=== PATIENT | female | born 1995 | race Caucasian/White ===

== ENCOUNTER 2021-01-06 23:58 | Emergency (ER) | payer OTHER ==
[~2021-01-06 23:58] MED LIST: FLEXERIL5 MG PO; NAPROXEN500 MG PO; NORCO 5-325 TA1 EACH PO
== END 2021-01-07 02:05 | disposition home or self-care (01) ==
LOC: FER 23:58
DX: L50.0 Allergic urticaria (principal); F17.210 Nicotine dependence, cigarettes, uncomplicated
CPT/HCPCS: 99283; J1040

== ENCOUNTER 2021-04-27 20:57 | Emergency (ER) | payer OTHER ==
[2021-04-27 22:15] LABS: BASOPHIL 0.5 % (0-2); EOSINOPHIL 0.7 % (0-5); HCT 39.6 % (37.0-47.0); HGB 13.3 g/dl (12.5-16.0); LYMPHOCYTE 21.5 % (15-48); MCH 30.2 pg (25.0-31.0); MCHC 33.6 g/dL (32.0-36.0); MONOCYTE 9.4 % (0-12); MPV 10.1 fL (6.0-9.5); NEUTROPHIL 67.5 % (41-80); NRBC 0; PLT 215 K/uL (150-400); RDW 13.6 % (11.5-14.0); WBC 7.4 K/uL (4.0-10.5)
[2021-04-27 22:33] LABS: BILIRUBIN NEGATIVE (NEGATIVE); BLOOD NEGATIVE Ery/uL (NEGATIVE); CLARITY CLEAR (CLEAR); COLOR YELLOW (YELLOW); GLUCOSE (U) NORMAL (NORMAL); LEUKOCYTES NEGATIVE Leu/uL (NEGATIVE); NITRITE NEGATIVE (NEGATIVE); PROTEIN NEGATIVE (NEGATIVE); SPECIFIC GRAVITY >=1.030 (1.001-1.030); UROBILINOGEN 0.2 mg/dL (0.2-1.0)
[2021-04-27 22:50] LABS: ALBUMIN 3.5 g/dL (3.4-5.0); BILIRUBIN - TOTAL 0.2 mg/dL (0.2-1.0); CREATININE 0.72 mg/dL (0.51-0.95); GLOBULIN (CALCULATION) 3.3 g/dL; POTASSIUM 4.1 mmol/L (3.5-5.1); TOTAL PROTEIN 6.8 g/dL (6.4-8.2)
== END 2021-04-28 01:57 | disposition home or self-care (01) ==
LOC: FER 20:57
PROVIDERS: Emergency Medicine Emergency Medical Services
DX: O20.0 Threatened abortion (principal); O99.331 Smoking (tobacco) complicating pregnancy, first trimester; F17.210 Nicotine dependence, cigarettes, uncomplicated; Z88.0 Allergy status to penicillin; Z87.42 Personal history of other diseases of the female genital tract; Z3A.08 8 weeks gestation of pregnancy
CPT/HCPCS: 36415; 76801; 80053; 81003; 84702; 85025

== ENCOUNTER 2021-05-06 14:55 | Emergency (ER) | payer OTHER ==
[2021-05-06 15:58] LABS: BILIRUBIN NEGATIVE (NEGATIVE); BLOOD NEGATIVE Ery/uL (NEGATIVE); CLARITY HAZY (CLEAR); COLOR YELLOW (YELLOW); GLUCOSE (U) NORMAL (NORMAL); LEUKOCYTES TRACE Leu/uL (NEGATIVE); NITRITE NEGATIVE (NEGATIVE); PROTEIN TRACE (LOW) mg/dL (NEGATIVE); UROBILINOGEN 0.2 mg/dL (0.2-1.0)
[2021-05-06 16:14] LABS: BACTERIA 2+; URINARY RBC RARE
[2021-05-06 19:25] LABS: BASOPHIL 0.3 % (0-2); EOSINOPHIL 0.7 % (0-5); HCT 41.7 % (37.0-47.0); HGB 14.3 g/dl (12.5-16.0); LYMPHOCYTE 26.3 % (15-48); MCH 29.8 pg (25.0-31.0); MCHC 34.3 g/dL (32.0-36.0); MCV 86.9 fL (78.0-100.0); MONOCYTE 9.2 % (0-12); MPV 9.7 fL (6.0-9.5); NEUTROPHIL 63.2 % (41-80); NRBC 0; PLT 247 K/uL (150-400); RDW 13.2 % (11.5-14.0); WBC 5.8 K/uL (4.0-10.5)
[2021-05-06 19:41] LABS: ALBUMIN 3.7 g/dL (3.4-5.0); BILIRUBIN - TOTAL 0.4 mg/dL (0.2-1.0); BUN/CREAT RATIO (CALC) 15.6 RATIO; CREATININE 0.64 mg/dL (0.51-0.95); GLOBULIN (CALCULATION) 3.7 g/dL; POTASSIUM 3.8 mmol/L (3.5-5.1); TOTAL PROTEIN 7.4 g/dL (6.4-8.2)
[2021-05-06] MEDS ORDERED: DOXYLAMINE-PYR1 EACH PO (22:10)
[2021-05-06] MEDS ORDERED: PROMETHEGA12.5 MG/SU PR (22:10)
[2021-05-06] MEDS ORDERED: MACROBID100 MG PO (22:10)
== END 2021-05-06 22:48 | disposition home or self-care (01) ==
LOC: FER 14:55
PROVIDERS: Emergency Medicine; Nurse Practitioner Family
DX: O23.41 Unspecified infection of urinary tract in pregnancy, first trimester (principal); O21.0 Mild hyperemesis gravidarum; O99.281 Endocrine, nutritional and metabolic diseases complicating pregnancy, first trimester; E86.0 Dehydration; F17.210 Nicotine dependence, cigarettes, uncomplicated; O99.331 Smoking (tobacco) complicating pregnancy, first trimester; Z3A.01 Less than 8 weeks gestation of pregnancy; Z88.0 Allergy status to penicillin; Z87.59 Personal history of other complications of pregnancy, childbirth and the puerperium
CPT/HCPCS: 36415; 80053; 81001; 84702; 85025; 87088; J0780; J1200; J2405; J7030

== ENCOUNTER 2021-05-18 14:08 | Emergency (ER) | payer OTHER ==
[~2021-05-18 14:08] MED LIST changes: +DOXYLAMINE-PYR1 EACH PO; +MACROBID100 MG PO; +PROMETHEGA12.5 MG/SU PR
[2021-05-18 14:50] LABS: BASOPHIL 0.6 % (0-2); EOSINOPHIL 0.5 % (0-5); HCT 38.1 % (37.0-47.0); LYMPHOCYTE 22.3 % (15-48); MCH 29.7 pg (25.0-31.0); MCHC 34.1 g/dL (32.0-36.0); MCV 87.2 fL (78.0-100.0); MONOCYTE 8.1 % (0-12); NEUTROPHIL 68.2 % (41-80); NRBC 0; PLT 238 K/uL (150-400); RBC 4.37 M/uL (4.20-5.40); RDW 12.8 % (11.5-14.0); WBC 6.2 K/uL (4.0-10.5)
[2021-05-18 14:56] LABS: BILIRUBIN 1+ mg/dL (NEGATIVE); BLOOD 3+ Ery/uL (NEGATIVE); CLARITY CLOUDY (CLEAR); COLOR YELLOW (YELLOW); GLUCOSE (U) NORMAL (NORMAL); LEUKOCYTES TRACE Leu/uL (NEGATIVE); NITRITE NEGATIVE (NEGATIVE); PROTEIN TRACE (LOW) mg/dL (NEGATIVE); SPECIFIC GRAVITY 1.025 (1.001-1.030)
[2021-05-18 15:03] LABS: BACTERIA 1+; SQUAMOUS EPITHELIAL CELLS >50
[2021-05-18 15:07] LABS: BUN/CREAT RATIO (CALC) 18.5 RATIO; CREATININE 0.54 mg/dL (0.51-0.95); POTASSIUM 3.6 mmol/L (3.5-5.1)
== END 2021-05-18 16:52 | disposition home or self-care (01) ==
LOC: FER 14:08
PROVIDERS: Nurse Practitioner Family
DX: O99.281 Endocrine, nutritional and metabolic diseases complicating pregnancy, first trimester (principal); E86.0 Dehydration; O21.9 Vomiting of pregnancy, unspecified; Z3A.08 8 weeks gestation of pregnancy
CPT/HCPCS: 36415; 80048; 81001; 84702; 85025; J7120

== ENCOUNTER 2021-05-22 11:49 | Day surgery (SDCO) | payer OTHER ==
[~2021-05-22] VITALS: Ht 157.5 cm; Wt 92.1 kg
[2021-05-22 13:53] LABS: BASOPHIL 0.2 % (0-2); EOSINOPHIL 0.1 % (0-5); HCT 40.7 % (37.0-47.0); HGB 14.1 g/dl (12.5-16.0); LYMPHOCYTE 15.3 % (15-48); MCH 29.8 pg (25.0-31.0); MCHC 34.6 g/dL (32.0-36.0); MONOCYTE 5.1 % (0-12); MPV 10.6 fL (6.0-9.5); NEUTROPHIL 78.9 % (41-80); NRBC 0; PLT 277 K/uL (150-400); RBC 4.73 M/uL (4.20-5.40); RDW 13.1 % (11.5-14.0); WBC 8.6 K/uL (4.0-10.5)
[2021-05-22 13:56] LABS: BILIRUBIN 1+ mg/dL (NEGATIVE); BLOOD 1+ Ery/uL (NEGATIVE); COLOR YELLOW (YELLOW); GLUCOSE (U) NORMAL (NORMAL); LEUKOCYTES 1+ Leu/uL (NEGATIVE); NITRITE NEGATIVE (NEGATIVE); PROTEIN 1+ mg/dL (NEGATIVE); SPECIFIC GRAVITY 1.025 (1.001-1.030); UROBILINOGEN 0.2 mg/dL (0.2-1.0)
[2021-05-22 13:59] LABS: CLARITY HAZY (CLEAR)
[2021-05-22 14:04] LABS: BUN/CREAT RATIO (CALC) 17.9 RATIO; CREATININE 0.56 mg/dL (0.51-0.95); POTASSIUM 3.5 mmol/L (3.5-5.1)
[2021-05-22 14:04] LABS: BACTERIA 2+; SQUAMOUS EPITHELIAL CELLS 20-50
[2021-05-22 14:05] LABS: MUCOUS TRACE; URINARY RBC RARE
[2021-05-22 19:13] LABS: CORONAVIRUS 2019 SARS-COV-2 NEGATIVE (NEGATIVE); INFLUENZA A NAA NEGATIVE (NEGATIVE)
[2021-05-22] MEDS ORDERED: REGLAN5 MG PO (21:04)
--- NOTE | 2021-05-23 04:35 | NUR ---
CORRECTION OF DOCUMENTATION IVF'S DOCUMENTED ON 05/23/2021 AT 0000, 0200 , & 0400 ARE LRD5W AT 125ML/HR.
--- NOTE | 2021-05-23 04:36 | NUR ---
lATE ENTRY: IVF'S DOCUMENTED AT 1999 & 2200 ON 05/22/21 ARE LRD5W AT 125 ML/HR.
[2021-05-23] MEDS ORDERED: VITAMIN B-625 MG PO (06:33)
[2021-05-23] MEDS ORDERED: SLEEP AID25 M1 PO (06:33)
== END 2021-05-23 11:51 | disposition home or self-care (01) ==
LOC: FER 11:49 → FMS 18:25
PROVIDERS: Nurse Practitioner Family; ADMIT Obstetrics & Gynecology
DX: O21.9 Vomiting of pregnancy, unspecified (principal); O30.041 Twin pregnancy, dichorionic/diamniotic, first trimester; Z3A.08 8 weeks gestation of pregnancy; Z88.0 Allergy status to penicillin; F17.200 Nicotine dependence, unspecified, uncomplicated; O99.331 Smoking (tobacco) complicating pregnancy, first trimester; Z20.822 Contact with and (suspected) exposure to COVID-19
CPT/HCPCS: 36415; 80048; 81001; 84702; 85025; 87088; G0378; J2405; J2550; J2765; J7030; J7120; J7121; U0002

== ENCOUNTER 2021-06-29 10:58 | Emergency (ER) | payer OTHER ==
[~2021-06-29 10:58] MED LIST changes: +REGLAN5 MG PO; +SLEEP AID25 M1 PO; +VITAMIN B-625 MG PO
[2021-06-29 12:41] LABS: INFLUENZA A NAA NEGATIVE (NEGATIVE)
[2021-06-29 12:46] LABS: CORONAVIRUS 2019 SARS-COV-2 POSITIVE (NEGATIVE)
[2021-06-29 13:49] LABS: BASOPHIL 0.2 % (0-2); EOSINOPHIL 0.2 % (0-5); HCT 37.3 % (37.0-47.0); HGB 12.5 g/dl (12.5-16.0); LYMPHOCYTE 22.2 % (15-48); MCH 29.8 pg (25.0-31.0); MCHC 33.5 g/dL (32.0-36.0); MONOCYTE 13.9 % (0-12); MPV 9.9 fL (6.0-9.5); NEUTROPHIL 62.8 % (41-80); NRBC 0; PLT 189 K/uL (150-400); RBC 4.19 M/uL (4.20-5.40); RDW 13.8 % (11.5-14.0); WBC 4.2 K/uL (4.0-10.5)
[2021-06-29 14:13] LABS: ALBUMIN 2.9 g/dL (3.4-5.0); BILIRUBIN - TOTAL 0.1 mg/dL (0.2-1.0); BUN/CREAT RATIO (CALC) 15.1 RATIO; CREATININE 0.53 mg/dL (0.51-0.95); GLOBULIN (CALCULATION) 3.9 g/dL; POTASSIUM 3.6 mmol/L (3.5-5.1); TOTAL PROTEIN 6.8 g/dL (6.4-8.2)
[2021-06-29 15:29] LABS: BILIRUBIN 1+ mg/dL (NEGATIVE); BLOOD NEGATIVE Ery/uL (NEGATIVE); CLARITY CLEAR (CLEAR); COLOR YELLOW (YELLOW); GLUCOSE (U) NORMAL (NORMAL); LEUKOCYTES TRACE Leu/uL (NEGATIVE); NITRITE NEGATIVE (NEGATIVE); PROTEIN TRACE (LOW) mg/dL (NEGATIVE); SPECIFIC GRAVITY >=1.030 (1.001-1.030); UROBILINOGEN 0.2 mg/dL (0.2-1.0)
[2021-06-29 15:34] LABS: BACTERIA 1+; SQUAMOUS EPITHELIAL CELLS >50
[2021-06-29] MEDS ORDERED: KEFLEX250 MG PO (16:39)
== END 2021-06-29 18:02 | disposition home or self-care (01) ==
LOC: FER 10:58
PROVIDERS: Internal Medicine; Physician Assistant
DX: O02.1 Missed abortion (principal); O23.42 Unspecified infection of urinary tract in pregnancy, second trimester; O98.511 Other viral diseases complicating pregnancy, first trimester; U07.1 COVID-19; Z3A.14 14 weeks gestation of pregnancy; Z88.1 Allergy status to other antibiotic agents; Z88.0 Allergy status to penicillin; Z79.899 Other long term (current) drug therapy; Z87.891 Personal history of nicotine dependence
CPT/HCPCS: 36415; 76801; 76802; 80053; 81001; 85025; J7030; Q0169; U0002

== ENCOUNTER 2021-07-14 19:31 | Emergency (ER) | payer OTHER ==
[~2021-07-14 19:31] MED LIST changes: +KEFLEX250 MG PO
[2021-07-14 20:19] LABS: BASOPHIL 0.3 % (0-2); EOSINOPHIL 0.7 % (0-5); HCT 39.6 % (37.0-47.0); HGB 13.2 g/dl (12.5-16.0); LYMPHOCYTE 14.7 % (15-48); MCH 29.3 pg (25.0-31.0); MCHC 33.3 g/dL (32.0-36.0); MONOCYTE 5.5 % (0-12); MPV 10.4 fL (6.0-9.5); NEUTROPHIL 78.3 % (41-80); NRBC 0; PLT 228 K/uL (150-400); WBC 10.5 K/uL (4.0-10.5)
[2021-07-14 20:36] LABS: LACTIC ACID 1.5 mmol/L (0.4-1.9)
[2021-07-14 20:41] LABS: ALBUMIN 3.1 g/dL (3.4-5.0); BILIRUBIN - TOTAL 0.3 mg/dL (0.2-1.0); BUN/CREAT RATIO (CALC) 21.3 RATIO; CREATININE 0.47 mg/dL (0.51-0.95); GLOBULIN (CALCULATION) 4.2 g/dL; POTASSIUM 3.4 mmol/L (3.5-5.1); TOTAL PROTEIN 7.3 g/dL (6.4-8.2)
[2021-07-14 22:02] LABS: BILIRUBIN NEGATIVE (NEGATIVE); BLOOD NEGATIVE Ery/uL (NEGATIVE); CLARITY CLEAR (CLEAR); COLOR YELLOW (YELLOW); GLUCOSE (U) NORMAL (NORMAL); LEUKOCYTES 2+ Leu/uL (NEGATIVE); NITRITE NEGATIVE (NEGATIVE); PROTEIN NEGATIVE (NEGATIVE); UROBILINOGEN 0.2 mg/dL (0.2-1.0)
[2021-07-14 22:09] LABS: BACTERIA 3+
[2021-07-14 22:34] LABS: FLU B NEGATIVE B (NEGATIVE B)
[2021-07-14] MEDS ORDERED: PHENERGAN12.5 M1 PO (23:10)
[2021-07-14] MEDS ORDERED: MACROBID100 MG PO (23:10)
== END 2021-07-14 23:35 | disposition home or self-care (01) ==
LOC: FER 19:31
PROVIDERS: Emergency Medicine Emergency Medical Services
DX: O98.511 Other viral diseases complicating pregnancy, first trimester (principal); U07.1 COVID-19; O99.891 Other specified diseases and conditions complicating pregnancy; R82.71 Bacteriuria; Z3A.16 16 weeks gestation of pregnancy; Z88.0 Allergy status to penicillin; Z88.1 Allergy status to other antibiotic agents; Z87.891 Personal history of nicotine dependence; Z79.899 Other long term (current) drug therapy
CPT/HCPCS: 36415; 71045; 80053; 81001; 83605; 83690; 84702; 85025; 87804; 87899; J2550; J7120; U0002

== ENCOUNTER 2021-08-30 16:20 | Emergency (ER) | payer OTHER ==
[~2021-08-30 16:20] MED LIST changes: +PHENERGAN12.5 M1 PO
[2021-08-30 17:17] LABS: BILIRUBIN NEGATIVE (NEGATIVE); BLOOD NEGATIVE Ery/uL (NEGATIVE); CLARITY CLEAR (CLEAR); COLOR YELLOW (YELLOW); GLUCOSE (U) NORMAL (NORMAL); LEUKOCYTES NEGATIVE Leu/uL (NEGATIVE); NITRITE NEGATIVE (NEGATIVE); PROTEIN NEGATIVE (NEGATIVE); UROBILINOGEN 0.2 mg/dL (0.2-1.0)
[2021-08-30 17:17] LABS: BASOPHIL 0.3 % (0-2); EOSINOPHIL 1.8 % (0-5); HGB 11.6 g/dl (12.5-16.0); LYMPHOCYTE 19.5 % (15-48); MCH 29.8 pg (25.0-31.0); MCHC 33.1 g/dL (32.0-36.0); MONOCYTE 7.2 % (0-12); MPV 10.4 fL (6.0-9.5); NEUTROPHIL 70.7 % (41-80); NRBC 0; PLT 220 K/uL (150-400); RBC 3.89 M/uL (4.20-5.40); RDW 13.2 % (11.5-14.0); WBC 7.4 K/uL (4.0-10.5)
[2021-08-30 17:36] LABS: BUN/CREAT RATIO (CALC) 17.6 RATIO; CREATININE 0.51 mg/dL (0.51-0.95)
[2021-08-30 18:23] LABS: INFLUENZA A NAA NEGATIVE (NEGATIVE)
[2021-08-30 18:28] LABS: CORONAVIRUS 2019 SARS-COV-2 POSITIVE (NEGATIVE)
== END 2021-08-30 22:55 | disposition home or self-care (01) ==
LOC: FER 16:20
PROVIDERS: Nurse Practitioner Family
DX: O98.512 Other viral diseases complicating pregnancy, second trimester (principal); U07.1 COVID-19; O99.892 Other specified diseases and conditions complicating childbirth; M54.50 Low back pain, unspecified; Z23 Encounter for immunization; Z88.0 Allergy status to penicillin; Z87.891 Personal history of nicotine dependence; Z3A.23 23 weeks gestation of pregnancy
CPT/HCPCS: 36415; 80048; 81003; 85025; J7030; M0243; Q0244; U0002

== ENCOUNTER 2021-10-15 16:55 | Emergency (ER) | payer OTHER ==
[2021-10-15 17:43] LABS: BASOPHIL 0.3 % (0-2); EOSINOPHIL 1.6 % (0-5); HCT 36.1 % (37.0-47.0); HGB 11.9 g/dl (12.5-16.0); LYMPHOCYTE 12.5 % (15-48); MCH 29.1 pg (25.0-31.0); MCV 88.3 fL (78.0-100.0); MONOCYTE 6.9 % (0-12); MPV 10.3 fL (6.0-9.5); NEUTROPHIL 77.9 % (41-80); NRBC 0; PLT 239 K/uL (150-400); RBC 4.09 M/uL (4.20-5.40); RDW 13.5 % (11.5-14.0)
[2021-10-15 17:59] LABS: BUN/CREAT RATIO (CALC) 17.6 RATIO; CREATININE 0.51 mg/dL (0.51-0.95); POTASSIUM 3.8 mmol/L (3.5-5.1)
== END 2021-10-15 19:49 | disposition home or self-care (01) ==
LOC: FER 16:55
PROVIDERS: Nurse Practitioner Family
DX: O21.2 Late vomiting of pregnancy (principal); Z88.0 Allergy status to penicillin; Z3A.30 30 weeks gestation of pregnancy
CPT/HCPCS: 36415; 80048; 85025; J2550; J7120

== ENCOUNTER 2021-12-16 05:14 | Inpatient (IN) | payer OTHER ==
[2021-12-17 05:50] LABS: HCT 30.9 % (37.0-47.0); MCH 28.3 pg (25.0-31.0); MCHC 32.4 g/dL (32.0-36.0); MCV 87.5 fL (78.0-100.0); RBC 3.53 M/uL (4.20-5.40); RDW 14.7 % (11.5-14.0); WBC 8.2 K/uL (4.0-10.5)
[2021-12-17] MEDS ORDERED: COLACE100 MG PO (07:22)
[2021-12-17] MEDS ORDERED: PRENATAL FORMU1 EACH PO (07:22)
[2021-12-17] MEDS ORDERED: IBUPROFEN800 M1 PO (07:22)
[2021-12-17] MEDS ORDERED: FEOSOL325 MG PO (07:22)
[2021-12-18] MEDS ORDERED: TRANDATE100 MG PO (10:06)
== END 2021-12-18 11:04 | disposition home or self-care (01) | DRG 805 ==
LOC: FOB 05:14 → FOD 05:14 → FOB 05:15
PROVIDERS: ADMIT Obstetrics & Gynecology
PROC: 10E0XZZ Delivery of Products of Conception, External Approach (ICD-10-PCS; principal; 2021-12-16)
DX: O98.52 Other viral diseases complicating childbirth (principal); U07.1 COVID-19; Z37.0 Single live birth; D62 Acute posthemorrhagic anemia; Z3A.38 38 weeks gestation of pregnancy; O99.52 Diseases of the respiratory system complicating childbirth; J45.909 Unspecified asthma, uncomplicated; O62.3 Precipitate labor; O99.214 Obesity complicating childbirth; O90.81 Anemia of the puerperium; O13.5 Gestational [pregnancy-induced] hypertension without significant proteinuria, complicating the puerperium; Z88.0 Allergy status to penicillin; Z86.19 Personal history of other infectious and parasitic diseases
CPT/HCPCS: 36415; J0595; J2590; U0002